=== PATIENT | female | born 1950 | race Caucasian/White ===

== ENCOUNTER 2016-09-16 08:16 | Day surgery (SDC) | payer OTHER ==
[2016-09-12 16:58] VITALS: BMI 25.0
--- NOTE | 2016-09-16 05:54 | HP ---
History & Physical Update - History History: No Change - Physical Physical: No Change - Assessment Assessment: No Change - Plan Plan: No Change
[~2016-09-16 08:16] MED LIST: CYCLOPENTOLATE HCL 1% OPHTH SOLN 2 ML BOTTLE OP SCH; MOXIFLOXACIN HCL 0.5% OPHTHALMIC 3 ML BOTTLE OP SCH; PHENYLEPHRINE 2.5% OPHTH SOLN 15 ML BOTTLE OP SCH; TOBRAMYCIN/DEXAMETHASONE OPHTH. OINTMENT 1 TUBE TP ONE; TROPICAMIDE 1% OPHTH SOLN 15 ML BOTTLE OP SCH
[2016-09-16] MEDS: MOXIFLOXACIN HCL 0.5% OPHTHALMIC 3 ML BOTTLE ONE ×3 (08:50→09:13)
[2016-09-16] MEDS: PHENYLEPHRINE 2.5% OPHTH SOLN 15 ML BOTTLE ONE ×3 (08:50→09:13)
[2016-09-16] MEDS: TROPICAMIDE 1% OPHTH SOLN 15 ML BOTTLE ONE ×3 (08:50→09:13)
[2016-09-16] MEDS: CYCLOPENTOLATE HCL 1% OPHTH SOLN 2 ML BOTTLE ONE ×3 (08:50→09:13)
[2016-09-16] MEDS ORDERED: BUPIVACAINE HCL/PF 0.75% 10 ML VIAL ONE (09:01)
[2016-09-16] MEDS ORDERED: LIDOCAINE HCL/PF 2% SDV 5ML VIAL ONE (09:01)
[2016-09-16] MEDS ORDERED: LIDOCAINE HCL/PF 1% SDV 5ML VIAL ONE (09:02)
[2016-09-16] MEDS ORDERED: TOBRAMYCIN/DEXAMETHASONE OPHTH. OINTMENT 1 TUBE ONE (10:05)
[2016-09-16] MEDS ORDERED: TETRACAINE 0.5% OPHTH SOLN 2 ML BOTTLE TP ONE (10:26)
[2016-09-16] MEDS ORDERED: LIDOCAINE HCL/PF 2% SDV 5ML VIAL PNB ONE (10:30)
[2016-09-16] MEDS ORDERED: BUPIVACAINE HCL/PF 0.75% 10 ML VIAL RB ONE (10:30)
[2016-09-16] MEDS ORDERED: LIDOCAINE HCL 1% PRESERVATIVE FREE - 30ML VIAL IO ONE (10:45)
[2016-09-16] MEDS ORDERED: CHONDROITIN SU A/HYALUR SOD 1 KIT IO ONE (10:47)
[2016-09-16] MEDS ORDERED: TOBRAMYCIN/DEXAMETHASONE OPHTH. OINTMENT 1 TUBE TP ONE (11:06)
[2016-09-16 12:47] VITALS: BP 115/64; PULSE 78; TEMP 97.8
--- NOTE | 2016-09-17 10:29 | OP ---
DATE OF OPERATION: 09/16/2016 SURGEON: Dario Underwood MD PREOPERATIVE DIAGNOSIS: Cataract, right eye. OPERATION: Phacoemulsification and intraocular lens implantation, right eye. POSTOPERATIVE DIAGNOSIS: Cataract, right eye. ANESTHESIA: Local with intravenous sedation. COMPLICATIONS: None. BLOOD LOSS: None. SPECIMEN: None. BRIEF HISTORY: The patient is a 65-year-old woman with a past medical history of diabetes, who presents with decreased vision in the right eye down to 20/40 due to a 2+ nuclear sclerotic lens with cortical spokes and mild posterior changes. After the risks, benefits, and alternatives to cataract surgery were discussed with the patient, she consented to surgery for the right eye. DESCRIPTION OF PROCEDURE: The patient was brought to the operating room and administered retrobulbar block after receiving intravenous sedation. She was then prepped and draped in the usual sterile fashion, and an eyelid speculum was inserted in the right eye. A paracentesis was made, and the anterior chamber was inflated with nonpreserved lidocaine. This was followed by injection of Viscoat. A groove was made in the temporal clear cornea which was tunneled forward with a crescent blade. The anterior chamber was entered with a 2.75 keratome. The cystotome was used to make an incision in the center of the capsule, and a continuous curvilinear capsulorrhexis was created. The lens was hydrodissected until it was found to rotate freely within the capsular bag. Phacoemulsification was then used to remove the lens in its entirety. Irrigation and aspiration were used to remove residual cortical material. The anterior chamber and capsular bag were reinflated with Provisc, and a 23.5-diopter SN60WF AcrySof intraocular lens was injected into the capsular bag using the Ashburn injector. The lens was dialed into place using a Sinskey hook. Irrigation and aspiration were used to remove residual Viscoelastic. The wound was stromally hydrated until it was found to be watertight and the eye was at an appropriate pressure. The eyelid speculum was removed from the eye, and TobraDex ointment and a patch and shield were placed over the right eye. The patient was transferred to the recovery room in stable condition and will follow up tomorrow. Gay [id number]
== END 2016-09-16 12:15 | disposition home or self-care (01) ==
LOC: JASU-SURG 08:16
PROVIDERS: ATTEND Ophthalmology
PROC: 08RJ3JZ Replacement of Right Lens with Synthetic Substitute, Percutaneous Approach (ICD-10-PCS; principal; 2016-09-16 10:00)
DX: H26.9 Unspecified cataract (principal); I10 Essential (primary) hypertension; I25.10 Atherosclerotic heart disease of native coronary artery without angina pectoris; I42.9 Cardiomyopathy, unspecified; I73.9 Peripheral vascular disease, unspecified; E78.5 Hyperlipidemia, unspecified; E11.9 Type 2 diabetes mellitus without complications; Z79.4 Long term (current) use of insulin

== ENCOUNTER 2018-11-04 09:39 | Emergency (ER) | payer OTHER ==
[2018-11-04 09:48] VITALS: BMI 22.4
--- NOTE | 2018-11-04 10:23 | PDOC ---
History of Present Illness - General Chief Complaint: Pain Stated Complaint: ABD PAIN Time Seen by Provider: 11/04/18 10:21 - History of Present Illness Initial Comments: 11/05/18 19:34 HPI: 67 y/o F with hx of HTN, HLD, DM, CAD s/p stents and CABG x2 now with LVAD since 07/2017, DVT on coumadin, CHF presenting with 2 days of left sided rib pain. Pain is focal to the anterior left thorax with no radiation of pain. Pain is constant and 10/10 and feels throbbing and intermittently sharp. She denies any rash, trauma, exercise, abd pain, n/v, fever, diaphoresis, change in BM, myalgias, fatigue. She does endorse 2 months of chronic non productive cough since new construction started near her home. She attempted tylenol for the pain with little improvement. Pain is worse with motion; denies pleuritic nature. PMHx: as noted above ROS: as noted SHx: Denies tobacco use; no alcohol use; no rec drugs Allergies: NKDA ROS: GENERAL/CONSTITUTIONAL: No fever or chills. No weakness. HEAD, EYES, EARS, NOSE AND THROAT: No change in vision. No ear pain or discharge. No sore throat. CARDIOVASCULAR: No chest pain or shortness of breath RESPIRATORY: No cough, wheezing, or hemoptysis. GASTROINTESTINAL: No nausea, vomiting, diarrhea or constipation. GENITOURINARY: No dysuria, frequency, or change in urination. MUSCULOSKELETAL: No joint or muscle swelling or pain. No neck or back pain. SKIN: No rash NEUROLOGIC: No headache, vertigo, loss of consciousness, or change in strength/ sensation. ENDOCRINE: No increased thirst. No abnormal weight change HEMATOLOGIC/LYMPHATIC: No anemia, easy bleeding, or history of blood clots. ALLERGIC/IMMUNOLOGIC: No hives or skin allergy. PE: GENERAL: Awake, alert, and fully oriented, mild acute distress HEAD: No signs of trauma, normocephalic, atraumatic EYES: EOMI, sclera anicteric, conjunctiva clear ENT: Auricles normal inspection, hearing grossly normal, nares patent, oropharynx clear without exudates. Moist mucosa NECK: Normal ROM, no lymphadenopathy LUNGS: No increased work of breathing, symmetrical chest rise, clear to auscultation bilaterally, no wheezes, crackles or rhonchi CHEST: constant hum of LVAD audible, significant focal bony tenderness on left 8th and 9th ribs with no overlying skin changes ABDOMEN: Soft, nontender, nondistended, normoactive bowel sounds. No guarding, no rebound. No masses. No CVAT. LVAD insertion site on right side of abdomen appears clean and dry without erythema or skin breakdown EXTREMITIES: Normal inspection, Normal range of motion, no edema. No clubbing or cyanosis. NEUROLOGICAL: Cranial nerves II through XII grossly intact. Normal speech, normal gait, no focal sensorimotor deficits SKIN: Warm, Dry, normal turgor, no rashes or lesions noted Past History - Past Medical History Allergies/Adverse Reactions: Allergies Allergy/AdvReac Type Severity Reaction Status Date / Time No Known Allergies Allergy Verified 11/04/18 09:48 Home Medications: Ambulatory Orders Aspirin [ASA -] 81 mg PO DAILY 08/06/17 Atorvastatin Ca [Lipitor] 80 mg PO HS 08/06/17 Furosemide [Lasix] 20 mg PO DAILY 08/06/17 Metoprolol Succinate [Toprol Xl] 50 mg PO DAILY 08/06/17 Warfarin Sodium 4 mg PO HS 08/06/17 Warfarin Sodium [Coumadin] 5 mg PO HS 08/06/17 Amlodipine Besylate 10 mg PO DAILY 11/04/18 Insulin Glargine,Hum.rec.anlog [Basaglar Kwikpen U-100] 8 unit SQ HS 11/04/18 Insulin Lispro [Admelog Solostar] 4 unit SQ AM 11/04/18 Insulin Lispro [Admelog Solostar] 6 unit SQ ASDIR 11/04/18 Lisinopril 5 mg PO DAILY 11/04/18 Anemia: No Asthma: No Cancer: No Cardiac Disorders: Yes (Pt has heart dubon pump) CVA: No COPD: No CHF: No Dementia: No Diabetes: Yes GI Disorders: No Disorders: No HTN: Yes Hypercholesterolemia: Yes Liver Disease: No Seizures: No Thyroid Disease: No - Surgical History Abdominal Surgery: Yes Appendectomy: No Cardiac Surgery: Yes (aicd,cabg) Cholecystectomy: No Lung Surgery: No Neurologic Surgery: No Orthopedic Surgery: No - Suicide/Smoking/Psychosocial Hx Smoking Status: Yes Smoking History: Never smoked Have you smoked in the past 12 months: No Number of Cigarettes Smoked Daily: 0 Information on smoking cessation initiated: No Hx Alcohol Use: No Drug/Substance Use Hx: No Substance Use Type: None Hx Substance Use Treatment: No *Physical Exam - Vital Signs Last Vital Signs Temp Pulse Resp BP Pulse Ox 98.5 F 85 19 130/54 L 99 11/04/18 09:45 11/04/18 09:45 11/04/18 09:45 11/04/18 09:45 11/04/18 09:45 Medical Decision Making - Medical Decision Making 11/05/18 19:53 67 y/o F with hx of HTN, HLD, DM, CAD s/p stents and CABG x2 now with LVAD since 07/2017, DVT on coumadin, CHF presenting with 2 days of left sided rib pain. Vitals wnl. PE notable for significant left sided focal rib tenderness -CXR PA/L pain control 11/05/18 19:53 no fx noted on CXR pain resolved with pain control spoke with operations administrator regarding patient case with no additional recs DC patient home with return pcxn and instructions for pain control *DC/Admit/Observation/Transfer Diagnosis at time of Disposition: Rib pain on left side - Discharge Dispostion Disposition: HOME Condition at time of disposition: Good - Referrals - Patient Instructions Printed Discharge Instructions: DI for Rib Contusion Additional Instructions: Take tylenol as needed for pain. Follow up with your LVAD doctor on Thursday 11/09 as planned Call the 24 hour LVAD line if you are having any problems with the LVAD. The number is [phone]. Return to the emergency department if you have any new, worsening, or concerning symptoms Print Language: CYMRO - Post Discharge Activity
--- NOTE | 2018-11-04 10:47 | PDOC ---
Attending Attestation - Resident Resident Name: Ghassan Sky - ED Attending Attestation I have performed the following: I have examined & evaluated the patient, The case was reviewed & discussed with the resident, I agree w/resident's findings & plan, Exceptions are as noted - HPI HPI: 11/04/18 10:43 67yo F hx HTN, HL, DM c/b L foot amputation, CAD, s/p stents, CABG, CHF s/p LVAD , DVT, on coumadin, presents to the ED with 2 days of LUQ pain Started yesterday, sudden in nature, started while sitting and coughing, made worse with movements of upper body or coughing. Denies CP, SOB, palpitations No N/V, diaphoresis, fevers, chills. Pt reporting 2 months of dry, non productive cough, reports recent construction near her home that she states triggers the cough. Pt tried tylenol for pain. Denies headache, weakness, increasing fatigue/lethargy, dizziness, focal weakness/numbness. LVAD has not alarmed or become hot. Daughter changed dressing to drive line yesterday. - Physicial Exam PE: 11/04/18 13:17 GENERAL: Awake, alert, and fully oriented, in no acute distress. Comfotable appearing HEAD: No signs of trauma EYES: PERRLA, EOMI, sclera anicteric, conjunctiva clear ENT: Nares patent, oropharynx clear without exudates. Moist mucosa NECK: Normal ROM, supple, no lymphadenopathy, JVD, or masses LUNGS: Breath sounds equal, clear to auscultation bilaterally. No wheezes, and no crackles CHEST: +point ttp to intercostal muscles btwn 9th and 10th ribs to anteriorolateral chest, very reproducible HEART: Humming sound of LVAD auscultated ABDOMEN: Soft, nontender, normoactive bowel sounds. No guarding, no rebound. No masses EXTREMITIES: Normal range of motion, no edema. No clubbing or cyanosis. No cords, erythema, or tenderness NEUROLOGICAL: Normal speech, cranial nerves intact, 5/5 strength in all 4 extremities, normal sensation to light touch in all 4 extremities, normal cerebellar exam, normal gait SKIN: Driveline in place, no surrounding warmth, erythema, ttp. Warm, Dry, normal turgor, no rashes or lesions noted. LVAD: Heartmate controller at 2680 RPM,, 3.7L/min, 3.8 morales, does not feel hot. - Medical Decision Making 11/04/18 13:25 67yo F with MMP including CHF s/p LVAD presents to the ED with reproducible L anterior lower rib pain, started after coughing fit. BP checked with manual cuff and doppler and MAP is 70 Exam very consistent with musculoskeletal pain 2/2 coughing CXR obtained to r/o PNA, rib fracture, was negative Pain improved with tylenol Pt well appearing otherwise, warm, well perfused with no other complaitns Case discussed with BORIS Mosher at [facility] ([phone]), parameters on controller of LVAD reviewed and are normal. Pt's weekly INR check 2 days ago was 2, therapeutic. They have no further recommendations, pt has f/u on Thursday 11/09 Results explained to pt's daughter Jodi who is main animal caretaker, all questions answered Pt is clinically stable for DC home I discussed the physical exam findings, ancillary test results and final diagnoses with the patient. I answered all of the patient's questions. The patient was satisfied with the care received and felt comfortable with the discharge plan and treatment plan. The patient will call their primary care physician within 24 hours to arrange follow-up and will return to the Emergency Department with any new, persistent or worsening symptoms.
[2018-11-04 11:12] VITALS: PULSE 60
[2018-11-04] MEDS ORDERED: ACETAMINOPHEN 500 MG TABLET (FP) PO ONE (12:24)
[2018-11-04] MEDS ORDERED: ACETAMINOPHEN 325 MG TABLET (FP) ONE (13:13)
[2018-11-04 13:53] VITALS: BP 125/67; TEMP 98
== END 2018-11-04 14:04 | disposition home or self-care (01) ==
LOC: JER 09:39
DX: R07.81 Pleurodynia (principal); I10 Essential (primary) hypertension; E78.5 Hyperlipidemia, unspecified; E11.9 Type 2 diabetes mellitus without complications; I25.10 Atherosclerotic heart disease of native coronary artery without angina pectoris; Z86.718 Personal history of other venous thrombosis and embolism; Z79.01 Long term (current) use of anticoagulants; Z79.4 Long term (current) use of insulin
CPT/HCPCS: 71046-TC-FY; 99282-25

== ENCOUNTER 2023-02-24 17:29 | Emergency (ER) | payer OTHER ==
[2023-02-24 17:49] VITALS: BP 119/91; PULSE 60; RESP 18; TEMP 98.3; BMI 23.0
[2023-02-24 19:14] LABS: BASO % 1.2 % (0-2.0); EOS % 1.8 % (0-4.5); HEMATOCRIT 36.7 % (32.4-45.2); HEMOGLOBIN 11.1 GM/dL (10.7-15.3); LYMPH % 14.8 % (8-40); MCH 22.4 pg (25.7-33.7); MCHC 30.1 g/dl (32.0-36.0); MEAN CELL VOLUME 74.3 fl (80-96); MEAN PLT VOLUME 8.7 fl (7.5-11.1); MONO % 8.1 % (3.8-10.2); NEUT % 74.1 % (42.8-82.8); PLATELET COUNT 341 10^3/uL (134-434); RBC 4.94 M/mm3 (3.60-5.2); RDW 24.1 % (11.6-15.6); WHITE BLOOD COUNT 6.6 K/mm3 (4.0-10.0)
[2023-02-24 19:22] LABS: EPI CELLS 4 /uL (0-25.1); HYALINE CASTS 0 /uL (0-3.1); PH,URINE 5.5 (5.0-8.0); URINE APPEARANCE CLEAR; URINE BACTERIA 0 /uL (0-1359); URINE BILIRUBIN NEGATIVE (NEGATIVE); URINE COLOR YELLOW; URINE GLUCOSE (UA) NEGATIVE (NEGATIVE); URINE KETONE NEGATIVE (NEGATIVE); URINE LEUK ESTERASE NEGATIVE (NEGATIVE); URINE NITRITE NEGATIVE (NEGATIVE); URINE PROTEIN 1+ (NEGATIVE); URINE RBC 3 /uL (0-23.9); URINE UROBILINOGEN 0.2 mg/dL (0.2-1.0); URINE WBC 5 /uL (0-25.8)
[2023-02-24 20:17] LABS: ANISOCYTOSIS 3+; MACROCYTOSIS 0
[2023-02-24 20:22] LABS: ALBUMIN 3.4 g/dl (3.4-5.0); BLOOD UREA NITROGEN 18.7 mg/dL (7-18); CALCIUM 8.8 mg/dL (8.5-10.1)
[2023-02-24 20:25] LABS: CREATININE 1.3 mg/dL (0.55-1.3)
[2023-02-24 20:26] LABS: BILIRUBIN,TOTAL 0.8 mg/dL (0.2-1); TOT PROT 7.3 g/dl (6.4-8.2)
== END 2023-02-24 20:55 | disposition home or self-care (01) ==
LOC: JER 17:29
DX: R42 Dizziness and giddiness (principal); R61 Generalized hyperhidrosis; E11.649 Type 2 diabetes mellitus with hypoglycemia without coma
CPT/HCPCS: 36415; 71045-TC-FY; 80053; 81003; 82962; 85025; 87086; 93005; 93010; 99285-25

== ENCOUNTER 2023-04-24 14:38 | Emergency (ER) | payer OTHER ==
[2023-04-24 15:37] VITALS: BP 107/86; RESP 18; TEMP 99; BMI 23.1
[2023-04-24 17:05] LABS: BASO % 1.1 % (0-2.0); EOS % 2.4 % (0-4.5); HEMOGLOBIN 11.6 GM/dL (10.7-15.3); LYMPH % 20.3 % (8-40); MCH 23.4 pg (25.7-33.7); MCHC 31.4 g/dl (32.0-36.0); MEAN CELL VOLUME 74.3 fl (80-96); MONO % 10.8 % (3.8-10.2); NEUT % 65.4 % (42.8-82.8); PLATELET COUNT 309 10^3/uL (134-434); RBC 4.98 M/mm3 (3.60-5.2); RDW 23.3 % (11.6-15.6); WHITE BLOOD COUNT 4.6 K/mm3 (4.0-10.0)
[2023-04-24 17:12] LABS: INR 2.04 (0.83-1.09); PROTHROMBIN TIME (PATIENT) 23.5 SEC (9.7-13.0)
[2023-04-24 17:14] LABS: ACTIVATED PTT 44.2 SECONDS (25.2-36.5)
[2023-04-24 17:17] LABS: POTASSIUM 4.8 mmol/L (3.5-5.1)
[2023-04-24 17:20] LABS: BLOOD UREA NITROGEN 23.3 mg/dL (7-18)
[2023-04-24 17:22] LABS: CREATININE 1.2 mg/dL (0.55-1.3)
[2023-04-24 17:24] LABS: BILIRUBIN,TOTAL 1.2 mg/dL (0.2-1); TOT PROT 8.5 g/dl (6.4-8.2)
[2023-04-24 17:27] VITALS: PULSE 62
[2023-04-24 17:49] LABS: ANISOCYTOSIS 3+; MACROCYTOSIS 0; OVALOCYTE 1+; TARGET CELLS 1+
== END 2023-04-24 17:26 | disposition short-term general hospital (02) ==
LOC: JER 14:38
DX: K62.5 Hemorrhage of anus and rectum (principal); Z95.811 Presence of heart assist device; Z20.822 Contact with and (suspected) exposure to COVID-19
CPT/HCPCS: 0241U-QW; 36415; 71045-TC-FY; 80053; 82272; 82962; 84484; 85025; 85610; 85730; 86850; 86870; 86880; 86900; 86901; 86902; 93005; 93010; 99285-25